=== PATIENT | female | born 1960 | race Caucasian/White ===

== ENCOUNTER 2023-02-13 09:08 | Emergency (ER) | payer BC, SELFPAY ==
[2023-02-13] VITALS (7 sets, daily range): BP systolic 114–147; BP diastolic 52–92; PULSE 89–100; RESP 16; TEMP 37.1; O2SAT 98–100; BMI 19.7
--- NOTE | 2023-02-13 09:54 | ED.GENADULT ---
HPI - General Adult General Time Seen by Provider: 09:54 Date Seen: 02/13/23 Chief complaint: Dizziness/Vertigo Stated complaint: dizziness and body tingles Time Seen by Provider: 02/13/23 09:54 Source: patient and RN notes reviewed Mode of arrival: ambulatory Limitations: no limitations History of Present Illness HPI narrative: Patient is a 62-year-old female coming in with concern of some symptoms of dizziness that is a spinning type sensation. She also felt like her whole body felt tingly. She does endorse some underlying anxiety but this was a new symptom for her. She has had some upper respiratory symptoms going on about 5 weeks. She felt better and then got worse again. Her granddaughter tested positive for RSV a few days ago. Patient was in to the doctor got some Tessalon Perles but was not tested for RSV. She has had worsening respiratory symptoms again with congestion, ears have been hurting a bit, this vertiginous type symptoms and coughing. There have been some recent low-grade fevers. She has noticed some just brief intermittent chest discomfort that is sharp and not necessarily pleuritic more on the right side below the breast. No GI symptomatology. Related Data Home Medications Medication Instructions Recorded Confirmed atorvastatin 20 mg tablet 20 mg PO DAILY 02/13/23 02/13/23 bupropion HCl 300 mg 24 hr tablet, 300 mg PO DAILY 02/13/23 02/13/23 extended release clonazepam 0.5 mg tablet 0.5 mg PO PRN anxiety 02/13/23 levothyroxine 88 mcg tablet 88 mcg PO DAILY 02/13/23 02/13/23 sumatriptan succinate 100 mg tablet mg PO 02/13/23 sumatriptan succinate 6 mg/0.5 mL mg subcut 02/13/23 subcutaneous pen injector venlafaxine 150 mg 150 mg PO DAILY 02/13/23 02/13/23 capsule,extended release 24 hr venlafaxine 75 mg capsule,extended mg PO 02/13/23 release 24 hr verapamil 180 mg 24 hr 180 mg PO DAILY 02/13/23 02/13/23 capsule,extended release Previous Rx's Medication Instructions Recorded amoxicillin 875 mg-potassium 1 tab PO BID #20 tabs 02/13/23 clavulanate 125 mg tablet gentamicin 0.3 % eye drops 2 drp ophthalmic (eye) TID 5 days 02/13/23 #5 mL Allergies Allergy/AdvReac Type Severity Reaction Status Date / Time prochlorperazine AdvReac Severe Verified 02/13/23 09:19 amlodipine [From Norvasc] AdvReac Intermediate Verified 02/13/23 09:19 lisinopril AdvReac Intermediate Verified 02/13/23 09:19 Sulfa (Sulfonamide AdvReac Unknown Verified 02/13/23 09:19 Antibiotics) Review of Systems Status of ROS: Reports: 10 or more systems reviewed and unremarkable except as noted in History and below PFSH PFS Social History Smoking Status: Never smoker Do you use any of these nicotine containing products: None Second hand tobacco smoke exposure: No How often do you have a drink containing alcohol: never How often do you have six or more drinks on one occasion: Never AUDIT-C Alcohol total score: 0 Non-prescribed substance use: denies use service: No Exam Const: Vital Signs, click to edit/add: Vital Signs - 24 hr 02/13/23 09:22 02/13/23 09:30 02/13/23 10:32 Temperature 98.7 F Pulse Rate 92 Pulse Rate [Pulse Oximeter] 100 Respiratory Rate 16 Blood Pressure 129/72 Blood Pressure [Le ft Upper Arm] 147/92 H Pulse Oximetry 100 98 100 Oxygen Delivery Me thod Room Air 02/13/23 10:33 02/13/23 11:00 02/13/23 11:02 Temperature Pulse Rate 90 89 92 Pulse Rate [Pulse Oximeter] Respiratory Rate Blood Pressure 118/55 L Blood Pressure [Le ft Upper Arm] Pulse Oximetry 99 99 98 Oxygen Delivery Me thod 62-year-old female is alert interactive no apparent distress. Does have some audible nasal congestion but is able to speak in complete sentences. No tachypnea, no hoarseness. Documenting provider has reviewed patient's vital signs: yes Common normals: no apparent distress, average body habitus, oriented x3, no limitations, healthy appearing and alert General appearance: cooperative, comfortable, well kempt and well developed HENMT: Common normals: normocephalic, head/scalp atraumatic, hearing grossly normal bilaterally, external ears normal, EAC's normal, TM's normal bilaterally, external nose normal, nasal mucous membranes and turbinates normal, moist oral mucous membranes, oropharynx normal, dentition normal and gingiva normal Head and scalp: normocephalic and atraumatic Nose: external nose normal and nasal mucous membranes and turbinates normal External ear: external ears normal External auditory canal: EAC's normal Tympanic membrane: TM's normal bilaterally Eye: Common normals: PERRL, EOMs intact bilaterally (No sustained nystagmus on exam or with head maneuvers), conjunctivae normal and no scleral icterus Conjunctiva: conjunctiva(e) normal Pupil: PERRL Neck & C-Spine: Common normals: full ROM, no lymphadenopathy, supple, no meningeal signs, no JVD and thyroid normal Thyroid: thyroid normal Chest: Common normals: inspection of chest normal and palpation of chest normal Resp: Common normals: normal respiratory effort, no retractions, no use of accessory muscles and clear to auscultation bilaterally Auscultation: clear to auscultation bilaterally Cardio: Common normals: no JVD, regular rate, regular rhythm, S1 normal heart sound, S2 normal heart sound, no gallops, no clicks and no murmurs Rate: regular rate Rhythm: regular rhythm Heart sounds: S1 normal and S2 normal GI: Common normals: Normal to inspection, nondistended, normoactive bowel sounds present, soft to palpation, non-tender, no hepatosplenomegaly and no masses Palpation: soft and no hepatosplenomegaly Extremity: Common normals: normal to inspection, full ROM, no calf tenderness and no pedal edema Neuro: Common normals: oriented x3 Sensorium/orientation: alert Meningeal signs: no meningeal signs Psych: Appearance: well kempt Course Course Hospital Course: Patient does agree to be retested for influenza/COVID, will do RSV with this. Will obtain head CT in this will shows some of the sinuses as well. I have fully expect that we might see some sinus symptomatology, she may have an test positive for RSV. We will consider other cardiac, respiratory and venous thrombotic disease as well. Right now she is stable. Will do full complement of labs, start with a chest x-ray and a head CT. Reevaluation(s) Reevaluation #1: Have reviewed with patient her CT findings of acute sinusitis, provided her a copy of the report. We will discharge on oral antibiotics. Awaiting some of her lab results. We did review that her potassium is low and would recommend supplementation given the vertigo. Certainly the sinusitis can be affecting that as well. Time: 11:14 Time: 12:20 Vital Signs Vital signs: Initial Vital Signs Temperature 98.7 F 02/13/23 09:22 Temperature Source Temporal Artery Scan 02/13/23 09:22 Pulse Rate 100 02/13/23 09:22 Respiratory Rate 16 02/13/23 09:22 Blood Pressure 147/92 H 02/13/23 09:22 Blood Pressure Mean 110 02/13/23 09:22 Blood Pressure Position Supine 02/13/23 09:22 Pulse Oximetry 100 02/13/23 09:22 Oxygen Delivery Method Room Air 02/13/23 09:22 Vital Signs Temperature 98.7 F 02/13/23 09:22 Pulse Rate 100 02/13/23 09:22 Respiratory Rate 16 02/13/23 09:22 Blood Pressure 147/92 H 02/13/23 09:22 Pulse Oximetry 100 02/13/23 09:22 Oxygen Delivery Method Room Air 02/13/23 09:22 Temperature 98.7 F 02/13/23 09:22 Pulse Rate 92 02/13/23 11:02 Respiratory Rate 16 02/13/23 09:22 Blood Pressure 118/55 L 02/13/23 11:02 Pulse Oximetry 98 02/13/23 11:02 Oxygen Delivery Method Room Air 02/13/23 09:22 Medical Decision Making Lab Data Lab results reviewed: Yes I reviewed the patient's lab results Labs: Lab Results 02/13/23 Range/Units 10:25 WBC 14.24 H (4.50-11.00) K/uL RBC 4.32 (4.00-5.20) m/uL Hgb 12.4 (12.0-16.0) gm/dL Hct 37.7 (33.0-51.0) % MCV 87 (80-100) fL MCH 29 (26-34) pg MCHC 33 (32-36) gm/dL RDW Coeff of Rosio 12.2 (11.5-15.5) % Plt Count 312 (140-440) K/uL Neut % (Auto) 81.9 H (42.0-72.0) % Lymph % (Auto) 11.4 L (20-44) % [place] % (Auto) 4.1 (0.0-11.0) % Eos % (Auto) 2.3 (0.0-7.0) % Baso % (Auto) 0.1 (0.0-3.0) % Neut # (Auto) 11.70 H (1.7-7.0) K/uL Lymph # (Auto) 1.60 (0.90-2.90) K/uL [place] # (Auto) 0.60 (0.00-0.90) K/UL Eos # (Auto) 0.30 (0.00-0.50) K/uL Baso # (Auto) 0.00 (0.00-0.30) K/uL ESR 40 H (2-20) mm/hr D-Dimer Quant (PE/DVT) 0.32 (0.00-0.50) ug/ml Sodium 137 (135-149) mmol/L Potassium 3.2 L (3.6-5.1) mmol/L Chloride 105 (96-114) mmol/L Carbon Dioxide 25 (20-32) mmol/L BUN 9 (7-30) mg/dL Creatinine 0.9 (0.5-1.5) mg/dL Estimated Creat Clear 47.75 Estimated GFR 73 ml/min Glucose 101 (60-115) mg/dL Lactate 0.6 (0.5-1.9) mmol/L Calcium 8.6 (8.4-10.6) mg/dL Magnesium 1.9 (1.5-2.6) mg/dL Total Bilirubin 0.3 (0.1-1.5) mg/dL AST 18 (12-35) U/L ALT 13 (4-35) U/L Alkaline Phosphatase 88 (40-150) U/L Troponin I < 0.01 L (0.01-0.04) ng/mL C-Reactive Protein 6.7 H (0.5-1.0) mg/dL NT-Pro-B Natriuret Pep 27 pg/mL Total Protein 7.6 (6.0-8.3) g/dL Albumin 4.0 (3.3-5.0) g/dL SARS-CoV-2 (PCR) Negative SARS-CoV-2 (Negative) Influenza Type A (PCR) Negative PCR FLU A (Negative) Influenza Type B (PCR) Negative PCR FLU B (Negative) RSV (PCR) Negative PCR RSV (Negative) Imaging Data Chest x-ray: Attestation: I have reviewed the pertinent imaging results. My impression: No acute cardiopulmonary pathology on my preliminary review. Radiologist's impression: Patient: [facility] Facility:?[facility] Patient ID:?[id number] Site Patient ID:?[id number]. Site :?[id number] Study:?XRay Chest 2 VIEW-02/13/2023 10:22:17 AM Ordering Physician:?Tatiana Smiley Final Report: Indication: Cough. Intermittent chest pain. Technique: Chest 2 views. Comparison: None. FINDINGS: The cardiomediastinal silhouette size is normal. There is no focal pulmonary opacity, pleural effusion or pneumothorax. The visualized osseous structures are unremarkable for age. Impression: No acute cardiopulmonary abnormality. Dictated by Nicole Roberts MD @ 02/13/2023 10:44:31 AM (Electronic Signature) CT scan - head: Attestation: I have reviewed the pertinent imaging results. Radiologist's impression: Patient: [facility] Facility:?[facility] Patient ID:?[id number] Site Patient ID:?[id number]. Site :?[id number] Study:?CT Head W/O-02/13/2023 10:24:04 AM Ordering Physician:?Tatiana Smiley Final Report: INDICATION: Vertigo. COMPARISON: None. TECHNIQUE: Noncontrast head CT. FINDINGS: The ventricles and sulci are within normal limits for age. There is no evidence of acute intracranial hemorrhage, edema or mass effect. No abnormal extra-axial collection. Oakley white differentiation is intact. There is a 4 mm circumscribed fluid density space in the left frontal lobe white matter which could represent an old infarct or prominent perivascular space. There is layering fluid within the left maxillary sinus and left sphenoid sinuses. Moderate mucosal thickening in the bilateral ethmoid air cells. The mastoid air cells are clear. No evidence of calvarial fracture. IMPRESSION: 1. No acute intracranial hemorrhage, edema or mass effect. 2. Layering fluid within the left sphenoid and maxillary sinuses and bilateral ethmoid air cell mucosal thickening. Correlate for signs/symptoms of acute sinusitis. Please note that all CT scans at this facility use dose modulation, iterative reconstruction, and/or weight-based dosing when appropriate to reduce radiation dose to as low as reasonably achievable. Dictated by Nicole Roberts MD @ 02/13/2023 10:56:46 AM (Electronic Signature) ECG Data Attestation: I personally reviewed and interpreted this ECG as follows: (Sinus rhythm, 94 beats per minute. Possible biatrial enlargement. QT corrected 427 milliseconds.) Prior ECG tracings: not available for review Critical Care Time Critical Care Time Critical Care Time: No Discharge Plan Discharge Clinical Impression: Acute bacterial sinusitis, Vertigo, Acute hypokalemia Patient Disposition: Home, Self-Care Condition: Stable Instructions: Sinusitis (ED), Vertigo (ED), Hypokalemia (ED), Conjunctivitis (ED) Additional Instructions: Start oral antibiotics and take as prescribed. Can use meclizine which is [id number] if needed for any ongoing vertigo symptoms. Hopefully with treatment of your sinusitis the vertigo will settle down. Do recommend follow-up next week and have potassium rechecked in clinic to ensure it is stabilized. If you have ongoing issues with low potassium, further workup may be recommended. Activity Level: Activity as Tolerated Prescriptions: New amoxicillin-pot clavulanate 875-125 mg tablet 1 tab PO BID Qty: 20 0RF gentamicin 0.3 % drops 2 drp ophthalmic (eye) TID 5 Days Qty: 5 0RF No Action venlafaxine 75 mg capsule,extended release 24hr PO atorvastatin 20 mg tablet 20 mg PO DAILY sumatriptan succinate 100 mg tablet PO clonazepam 0.5 mg tablet 0.5 mg PO PRN (Reason: anxiety) venlafaxine 150 mg capsule,extended release 24hr 150 mg PO DAILY verapamil 180 mg capsule,ext rel. pellets 24 hr 180 mg PO DAILY levothyroxine 88 mcg tablet 88 mcg PO DAILY sumatriptan succinate 6 mg/0.5 mL pen injector subcut bupropion HCl 300 mg tablet extended release 24 hr 300 mg PO DAILY Stand Alone Forms: Monitor [employer] Info Instructions
--- NOTE | 2023-02-13 10:00 | CRLHL7_ITS ---
For Patients: As a result of the Century Cures Act, medical imaging exams and procedure reports are released immediately into your electronic medical record. You may view this report before your referring provider. If you have questions, please contact your health care provider. INDICATION: Vertigo. COMPARISON: None. TECHNIQUE: Noncontrast head CT. FINDINGS: The ventricles and sulci are within normal limits for age. There is no evidence of acute intracranial hemorrhage, edema or mass effect. No abnormal extra-axial collection. Oakley white differentiation is intact. There is a 4 mm circumscribed fluid density space in the left frontal lobe white matter which could represent an old infarct or prominent perivascular space. There is layering fluid within the left maxillary sinus and left sphenoid sinuses. Moderate mucosal thickening in the bilateral ethmoid air cells. The mastoid air cells are clear. No evidence of calvarial fracture. IMPRESSION: 1. No acute intracranial hemorrhage, edema or mass effect. 2. Layering fluid within the left sphenoid and maxillary sinuses and bilateral ethmoid air cell mucosal thickening. Correlate for signs/symptoms of acute sinusitis. Please note that all CT scans at this facility use dose modulation, iterative reconstruction, and/or weight-based dosing when appropriate to reduce radiation dose to as low as reasonably achievable. Dictated by Nicole Roberts MD @ 02/13/2023 10:56:46 AM (Electronically Signed)
--- NOTE | 2023-02-13 10:00 | CRLHL7_ITS ---
For Patients: As a result of the Century Cures Act, medical imaging exams and procedure reports are released immediately into your electronic medical record. You may view this report before your referring provider. If you have questions, please contact your health care provider. Indication: Cough. Intermittent chest pain. Technique: Chest 2 views. Comparison: None. FINDINGS: The cardiomediastinal silhouette size is normal. There is no focal pulmonary opacity, pleural effusion or pneumothorax. The visualized osseous structures are unremarkable for age. Impression: No acute cardiopulmonary abnormality. Dictated by Nicole Roberts MD @ 02/13/2023 10:44:31 AM (Electronically Signed)
[2023-02-13 10:33] LABS: Lactate* 0.6 mmol/L (0.5-1.9)
[2023-02-13 10:36] LABS: Basophils Percent Auto 0.1 % (0.0-3.0); Eosinophils Percent Auto 2.3 % (0.0-7.0); Hematocrit 37.7 % (33.0-51.0); Hemoglobin* 12.4 gm/dL (12.0-16.0); Immature Granulocytes Pct Auto 0.2 %; Lymphocytes Percent Auto 11.4 % (20-44); Mean Corpuscular HGB Conc 33 gm/dL (32-36); Mean Corpuscular Hemoglobin 29 pg (26-34); Mean Corpuscular Volume 87 fL (80-100); Monocytes Percent Auto 4.1 % (0.0-11.0); Neutrophils Percent Auto 81.9 % (42.0-72.0); Platelet Count* 312 K/uL (140-440); RDW Coefficient of Variation % 12.2 % (11.5-15.5); Red Blood Count 4.32 m/uL (4.00-5.20); White Blood Count* 14.24 K/uL (4.50-11.00)
[2023-02-13 10:37] LABS: Slide Review Reflex No
[2023-02-13 10:49] LABS: Chloride* 105 mmol/L (96-114)
[2023-02-13 10:50] LABS: Potassium* 3.2 mmol/L (3.6-5.1); Sodium* 137 mmol/L (135-149)
[2023-02-13 10:52] LABS: Bilirubin Total* 0.3 mg/dL (0.1-1.5); Creatinine* 0.9 mg/dL (0.5-1.5); Est. Creatinine Clearance* 47.75; Estimated Glomerular Filt Rate 73 ml/min
[2023-02-13 10:53] LABS: Alanine Aminotransferase* 13 U/L (4-35); Alkaline Phosphatase* 88 U/L (40-150); Aspartate Amino Transferase* 18 U/L (12-35); Blood Urea Nitrogen* 9 mg/dL (7-30); Calcium* 8.6 mg/dL (8.4-10.6); Carbon Dioxide* 25 mmol/L (20-32); Glucose* 101 mg/dL (60-115); Magnesium* 1.9 mg/dL (1.5-2.6); Total Protein* 7.6 g/dL (6.0-8.3)
[2023-02-13 10:54] LABS: D Dimer Quantitative* 0.32 ug/ml (0.00-0.50)
[2023-02-13 10:55] LABS: C Reactive Protein* 6.7 mg/dL (0.5-1.0)
[2023-02-13 11:13] LABS: NT Pro B Type NatriureticPept* 27 pg/mL; PCR FLU A Negative PCR FLU A (Negative); PCR FLU B Negative PCR FLU B (Negative); PCR RSV Negative PCR RSV (Negative); Troponin I* < 0.01 ng/mL (0.01-0.04)
[2023-02-13 11:15] LABS: Erythrocyte SedimentationRate* 40 mm/hr (2-20)
[2023-02-13 11:23] LABS: SARS PCR* Negative SARS-CoV-2 (Negative)
[2023-02-13] MEDS: POTASSIUM BICARB 25 MEQ EFFERVESCENT TAB PO (11:44)
== END 2023-02-13 12:52 | disposition home or self-care (01) ==
PROVIDERS: Emergency Provider Family Medicine
DX: J01.90 Acute sinusitis, unspecified (principal); E87.6 Hypokalemia
CPT/HCPCS: 36415; 70450; 71046; 80053; 83605; 83735; 83880; 84484; 85025; 85379; 85651; 86140; 87502; 87634; 87635; 93005; 94761; 99284; 99285; A9270